=== PATIENT | female | born 1990 | race Caucasian/White ===

== ENCOUNTER 2018-01-12 12:41 | Emergency (ER) | payer MEDICAID ==
[~2018-01-12] VITALS: Ht 165.1 cm; Wt 59.1 kg
[2018-01-12 12:47] VITALS: BP 116/73
[2018-01-12 13:17] LABS: CLARITY,URINE CLOUDY (Clear); COLOR,URINE YELLOW (Yellow); GLUCOSE, URINE NEGATIVE (Neg); KETONES,URINE NEGATIVE (Neg); LEUKOCYTE ESTERASE ,URINE LARGE (Neg); NITRITES, URINE NEGATIVE (Neg); OCCULT BLOOD,URINE MODERATE (Neg); PH,URINE 6.5 (4.8-8.0); PROTEIN,URINE 100 mg/dl (Neg); UROBILINOGEN,URINE 0.2 E.U/dL (0.2-1.0)
[2018-01-12 13:18] LABS: UA COLLECTION TYPE CLN CATCH MIDSTREAM
[2018-01-12 13:27] LABS: BACTERIA,URINE 4+ /HPF (Neg); MUCUS STRANDS MODERATE /LPF (Neg); SQUAMOUS EPITHELIAL CELL,UR MODERATE /LPF (FEW); WBC CLUMPS,URINE MODERATE /HPF (NEGATIVE); WBC,URINE TNTC /HPF (0-4)
[2018-01-12] MEDS ORDERED: DOXY100C43 PO (13:35)
== END 2018-01-12 13:55 | disposition home or self-care (01) ==
LOC: ER 12:43
DX: N39.0 Urinary tract infection, site not specified (principal); L72.3 Sebaceous cyst; Z79.899 Other long term (current) drug therapy
CPT/HCPCS: 81001; 87077; 87088; 87186; 99284

== ENCOUNTER 2019-02-18 11:21 | Emergency (ER) | payer MEDICAID ==
[~2019-02-18] VITALS: Ht 165.1 cm; Wt 61.4 kg
[2019-02-18 11:22] VITALS: BP 113/66
[2019-02-18] MEDS ORDERED: AMOX500C2 PO (12:10)
[2019-02-18] MEDS ORDERED: IBUP-1984 PO (12:10)
[2019-02-18] MEDS ORDERED: CHLO473M3 PO (12:10)
== END 2019-02-18 12:43 | disposition home or self-care (01) ==
LOC: ER 11:21
DX: K02.9 Dental caries, unspecified (principal); Z79.899 Other long term (current) drug therapy
CPT/HCPCS: 99283

== ENCOUNTER 2019-08-15 10:57 | Emergency (ER) | payer MEDICAID ==
[~2019-08-15] VITALS: Ht 165.1 cm; Wt 69.0 kg
[~2019-08-15 10:57] MED LIST: CHLO473M3 PO
[2019-08-15 11:03] VITALS: BP 115/84
[2019-08-15] MEDS ORDERED: BACDS PO (12:57)
[2019-08-15] MEDS ORDERED: CEPH250T PO (12:57)
== END 2019-08-15 13:09 | disposition home or self-care (01) ==
LOC: ER 10:57
DX: L02.416 Cutaneous abscess of left lower limb (principal)
CPT/HCPCS: 10060; 99283

== ENCOUNTER 2022-01-06 16:20 | Emergency (ER) | payer MEDICAID ==
[~2022-01-06] VITALS: Ht 165.1 cm; Wt 82.9 kg
[2022-01-06 16:40] VITALS: BP 109/67
== END 2022-01-06 18:40 | disposition left against medical advice (07) ==
LOC: ER 16:21
DX: R21 Rash and other nonspecific skin eruption (principal); Z53.21 Procedure and treatment not carried out due to patient leaving prior to being seen by health care provider